=== PATIENT | male | born 1970 | race Caucasian/White ===

== ENCOUNTER 2016-11-29 21:02 | Emergency (ER) | payer MEDICAID ==
[2016-11-29 21:08] VITALS: TEMP 98.2
[2016-11-29] MEDS ORDERED: IPRATROPIUM/ALBUTEROL 3 ML DEYVIAL IH ONE (21:19)
--- NOTE | 2016-11-29 21:22 | EDPHY ---
H & P Stated Complaint: cough, "bone pain" in whole back, SOB x ~2mo HPI/ROS: HPI CHIEF COMPLAINT: Cough, congestion, muscle aches, joint pain HISTORY OF PRESENT ILLNESS: This patient very pleasant 46-year-old male no significant medical history does have a remote history of smoking, no underlying lung disease, presents emergency room with 1 month of worsening cough. States over the past week he has had progressively worsening cough with productive sputum initially clear but also times green, dark-colored, no blood. Also endorses chills at night, muscle aches, joint pain. Shortness of breath. No chest pain. Presents emergency room this evening for progressively worsening shortness of breath wheezing and pain when he breathes in. Denies fever at home but does have chills. Past Medical History: No medical history Past Surgical History: No surgical history Social History: Denies daily use of drugs alcohol tobacco products, lives locally in [place] denies being homeless Family History: Noncontributory ROS REVIEW OF SYSTEMS: A comprehensive 10 point review of systems is otherwise negative aside from elements mentioned in the history of present illness. Exam Constitutional appears well nontoxic, triage nursing summary reviewed, vital signs reviewed, awake/alert. Eyes normal conjunctivae and sclera, EOMI, PERRLA. HENT normal inspection, atraumatic, moist mucus membranes, no epistaxis, neck supple/ no meningismus, no raccoon eyes. Respiratory very faint wheezing bilaterally, otherwise good air movement Cardiovascular rate normal, regular rhythm, no murmur, no edema, distal pulses normal. Gastrointestinal soft, non-tender, no rebound, no guarding, normal bowel sounds, no distension, no pulsatile mass. Genitourinary no CVA tenderness. Musculoskeletal no midline vertebral tenderness, full range of motion, no calf swelling, no tenderness of extremities, no meningismus, good pulses, neurovascularly intact. Skin pink, warm, & dry, no rash, skin atraumatic. Neurologic awake, alert and oriented x 3, AAOx3, moves all 4 extremities equally, motor intact, sensory intact, CN II-XII intact, normal cerebellar, normal vision, normal speech. Psychiatric normal mood/affect. Heme/Lymph/Immune no lymphadenopathy. Differential Diagnosis: Includes but is not limited to in a particular order viral syndrome, bronchitis, bronchospasm, viral pneumonia, bacterial pneumonia, PE, dissection, pneumothorax CHF Medical Decision Making: Plan for this patient full psychiatry adult physician, IV establishment DuoNeb breathing treatment, EKG, troponin, D-dimer. Fluid bolus. 22 chest x-ray will re-evaluate. Re-evaluation: EKG interpretation by me on record in [facility] system. Impression time of EKG 2150 sinus rhythm rate of 86 no acute ischemic appreciated specifically no ST elevation, ST depression, T-wave abnormalities prolonged intervals. ED x-ray chest two view: Negative for acute cardiopulmonary disease. Image interpreted myself. 5: re-examination at this time this patient is resting comfortably feels much better. DuoNeb greatly improved his respiratory symptoms. No further wheezing. Pulse ox 94% on room air. Good air movement. No wheezing. Feels comfortable. Agrees for discharge planning. Prescription given for albuterol, guaifenesin for cough and congestion, azithromycin, and Percocet for pain control. Take-home pack of Percocet. 7: Time of discharge patient did 1 show me 1 more thing he tells me that he has cyst the dorsum of his penile shaft. It is mobile soft nontender, 3 cm x 3 cm. I will refer him to Urology for this. No testicular pain. No urinary symptoms. Source: Patient - Personal History Current Tetanus/Diphtheria Vaccine: Unsure Current Tetanus Diphtheria and Acellular Pertussis (TDAP): Unsure - Medical/Surgical History Hx Asthma: No Hx Chronic Respiratory Disease: No Hx Diabetes: No Hx Cardiac Disease: No Hx Renal Disease: No Hx Cirrhosis: No Hx Alcoholism: No Hx HIV/AIDS: No Hx Splenectomy or Spleen Trauma: No Other PMH: hx B knee sgy - Social History Smoking Status: Former smoker Constitutional: Initial Vital Signs Temperature (C) 36.8 C 11/29/16 21:04 Heart Rate 100 11/29/16 21:04 Respiratory Rate 16 11/29/16 21:04 Blood Pressure 116/71 11/29/16 21:04 O2 Sat (%) 97 11/29/16 21:04 O2 Delivery Mode Room Air Allergies/Adverse Reactions: Penicillins Allergy (Verified 11/29/16 21:08) Home Medications: Medication Instructions Recorded AZITHROMYCIN [Z-PACK] 250 mg PO DAILY #6 tab 11/29/16 Albuterol [Proventil Inhaler HFA 1 - 2 puffs IH Q4H #1 mdi 11/29/16 (*)] Guaifenesin [Guaifenesin ER] 600 mg PO BID #14 tab.er.12h 11/29/16 Ibuprofen [Motrin (*)] 800 mg PO Q6-8PRN #7 tab 11/29/16 oxyCODONE HCL/ACETAMINOPHEN 1 each PO BID #14 tablet 11/29/16 [Percocet 5-325 mg Tablet] predniSONE 60 mg PO DAILY #15 tab 11/29/16 Medical Decision Making - Diagnostics Imaging: Imaging Impressions Chest X-Ray 11/29/16 21:20 Impression: Clear lungs. No pneumonia. - Data Points Laboratory Results: Laboratory Results 11/29/16 21:41 11/29/16 21:41 11/29/16 11/29/16 11/29/16 21:41 21:41 21:41 WBC 7.60 10^3/uL 10^3/uL (3.80-9.50) RBC 5.57 10^6/uL 10^6/uL (4.40-6.38) Hgb 16.9 g/dL g/dL (13.7-17.5) Hct 47.6 % % (40.0-51.0) MCV 85.5 fL fL (81.5-99.8) MCH 30.3 pg pg (27.9-34.1) MCHC 35.5 g/dL g/dL (32.4-36.7) RDW 12.9 % % (11.5-15.2) Plt Count 349 10^3/uL 10^3/uL (150-400) MPV 9.7 fL fL (8.7-11.7) Neut % (Auto) 50.3 % % (39.3-74.2) Lymph % (Auto) 37.8 % % (15.0-45.0) [place] % (Auto) 9.6 % % (4.5-13.0) Eos % (Auto) 1.2 % % (0.6-7.6) Baso % (Auto) 0.8 % % (0.3-1.7) Nucleat RBC Rel Count 0.0 % % (0.0-0.2) Absolute Neuts (auto) 3.83 10^3/uL 10^3/uL (1.70-6.50) Absolute Lymphs (auto) 2.87 10^3/uL 10^3/uL (1.00-3.00) Absolute Monos (auto) 0.73 10^3/uL 10^3/uL (0.30-0.80) Absolute Eos (auto) 0.09 10^3/uL 10^3/uL (0.03-0.40) Absolute Basos (auto) 0.06 10^3/uL 10^3/uL (0.02-0.10) Absolute Nucleated RBC 0.00 10^3/uL 10^3/uL (0-0.01) Immature Gran % 0.3 % % (0.0-1.1) Immature Gran # 0.02 10^3/uL 10^3/uL (0.00-0.10) PT 13.2 SEC SEC (12.0-15.0) INR 1.01 (0.83-1.16) APTT 26.9 SEC SEC (23.0-38.0) D-Dimer < 0.27 ug/mLFEU ug/mLFEU (0.00-0.50) Sodium 138 mEq/L mEq/L (134-144) Potassium 3.4 mEq/L L mEq/L (3.5-5.2) Chloride 101 mEq/L mEq/L (97-110) Carbon Dioxide 19 mEq/l L mEq/l (22-31) Anion Gap 18 mEq/L H mEq/L (8-16) BUN 6 mg/dL L mg/dL (7-23) Creatinine 0.9 mg/dL mg/dL (0.7-1.3) Estimated GFR > 60 Glucose 102 mg/dL H mg/dL (70-100) Calcium 10.2 mg/dL mg/dL (8.5-10.4) Magnesium 1.8 mg/dL mg/dL (1.6-2.3) Total Bilirubin 1.3 mg/dL mg/dL (0.1-1.4) Conjugated Bilirubin 0.6 mg/dL H mg/dL (0.0-0.5) Unconjugated Bilirubin 0.7 mg/dL mg/dL (0.0-1.1) AST 37 IU/L IU/L (17-59) ALT 40 IU/L IU/L (21-72) Alkaline Phosphatase 78 IU/L IU/L (38-126) Creatine Kinase 319 IU/L H IU/L (0-224) CK-MB (CK-2) Fraction 2.69 ng/mL ng/mL (0-3.19) CK-MB (CK-2) % 0.8 % % (0.0-4.0) Creatine Kinase Interp NEGATIVE (NEGATIVE) Troponin I < 0.012 ng/mL ng/mL (0-0.034) NT-Pro-B Natriuret Pep 25 pg/mL pg/mL (0-125) Total Protein 8.1 g/dL g/dL (6.3-8.2) Albumin 5.1 g/dL H g/dL (3.5-5.0) Lipase 146.0 IU/L IU/L (23-300) Medications Given: Discontinued Medications Albuterol/Ipratropium (Duoneb) 3 ml IH EDNOW ONE Stop: 11/29/16 21:20 Last Admin: 11/29/16 21:27 Dose: 3 ml Sodium Chloride (Ns) 1,000 mls @ 0 mls/hr IV ONCE ONE PRN Reason: Wide Open Stop: 11/29/16 21:28 Last Admin: 11/29/16 21:45 Dose: 1,000 mls Departure - Departure Disposition: Home, Routine, Self-Care Clinical Impression: Bronchitis Condition: Good Instructions: Acute Bronchitis (ED) Additional Instructions: 1. Return emergency room if you have any worsening symptoms questions or concerns. Includes worsening shortness of breath, chest pain fever vomiting. 2. Follow-up with urology about the cyst on your penis. Referrals: NONE *PRIMARY CARE P,. [Primary Care Provider] - As per Instructions Eriberto Payan MD [Medical Doctor] - As per Instructions Prescriptions: Albuterol [Proventil Inhaler HFA (*)] 1 - 2 puffs IH Q4H #1 mdi AZITHROMYCIN [Z-PACK] 250 mg PO DAILY #6 tab Guaifenesin [Guaifenesin ER] 600 mg PO BID #14 tab.er.12h Ibuprofen [Motrin (*)] 800 mg PO Q6-8PRN #7 tab oxyCODONE HCL/ACETAMINOPHEN [Percocet 5-325 mg Tablet] 1 each PO BID #14 tablet predniSONE 60 mg PO DAILY #15 tab
[2016-11-29] MEDS ORDERED: NS 1,000 ML IV ONE (21:27)
--- NOTE | 2016-11-29 21:53 | CPEKG ---
Heart Rate: 86 RR Interval: 698 P-R Interval: 168 QRSD Interval: 90 QT Interval: 352 QTC Interval: 421 P [place]: 15 QRS [place]: 36 T Wave [place]: 14 EKG Severity - NORMAL ECG - EKG Impression: SINUS RHYTHM Electronically Signed By: Xochilt Walker 02-Dec-2016 22:04:02
[2016-11-29 22:03] LABS: ALANINE AMINOTRANSFERASE 40 IU/L (21-72); ALBUMIN 5.1 g/dL (3.5-5.0); ALKALINE PHOSPHATASE 78 IU/L (38-126); ANION GAP 18 mEq/L (8-16); ASPARTATE AMINOTRANSFERASE 37 IU/L (17-59); BILIRUBIN,TOTAL 1.3 mg/dL (0.1-1.4); CALCIUM 10.2 mg/dL (8.5-10.4); CARBON DIOXIDE 19 mEq/l (22-31); CHLORIDE 101 mEq/L (97-110); CREATININE 0.9 mg/dL (0.7-1.3); GLOMERULAR FILTRATION RATE > 60; GLUCOSE 102 mg/dL (70-100); MAGNESIUM 1.8 mg/dL (1.6-2.3); POTASSIUM 3.4 mEq/L (3.5-5.2); SODIUM 138 mEq/L (134-144); TOTAL PROTEIN 8.1 g/dL (6.3-8.2)
[2016-11-29 22:11] LABS: INR 1.01 (0.83-1.16); PROTIME(PATIENT) 13.2 SEC (12.0-15.0)
[2016-11-29 22:12] LABS: APTT 26.9 SEC (23.0-38.0)
[2016-11-29 22:14] LABS: TROPONIN I < 0.012 ng/mL (0-0.034)
[2016-11-29 22:16] LABS: % IMMATURE GRANULYOCYTES 0.3 % (0.0-1.1); ABSOLUTE IMMATURE GRANULOCYTES 0.02 10^3/uL (0.00-0.10); ADD DIFF? NO; ADD MORPH? NO; ADD SCAN? NO; ATYPICAL LYMPHOCYTE FLAG 0 (0-99); FRAGMENT RBC FLAG 0 (0-99); HEMATOCRIT 47.6 % (40.0-51.0); HEMOGLOBIN 16.9 g/dL (13.7-17.5); LEFT SHIFT FLG 0 (0-99); LIPEMIA HEMOLYSIS FLAG 90 (0-99); MEAN CELL HEMOGLOBIN 30.3 pg (27.9-34.1); MEAN CELL HEMOGLOBIN CONCENTR. 35.5 g/dL (32.4-36.7); MEAN CELL VOLUME 85.5 fL (81.5-99.8); MEAN PLATELET VOLUME 9.7 fL (8.7-11.7); PLATELET CLUMPS FLAG 10 (0-99); PLATELET COUNT 349 10^3/uL (150-400); RED BLOOD CELL COUNT 5.57 10^6/uL (4.40-6.38); RED CELL DISTRIBUTION WIDTH 12.9 % (11.5-15.2)
[2016-11-29 22:24] LABS: CK-MB INTERPRETATION NEGATIVE (NEGATIVE)
[2016-11-29 22:25] LABS: CREATINE KINASE-MB FRACTION 2.69 ng/mL (0-3.19)
[2016-11-29 22:28] LABS: BILIRUBIN-CONJUGATED 0.6 mg/dL (0.0-0.5); BILIRUBIN-UNCONJUGATED 0.7 mg/dL (0.0-1.1)
[2016-11-29] MEDS ORDERED: predniSONE 20 MG TAB PO ONE (22:48)
[2016-11-29] MEDS ORDERED: AZITHROMYCIN 250 MG TAB PO ONE (22:48)
[2016-11-29] MEDS ORDERED: OXYCODONE/APAP 5/325MG PREPACK#4 BTL TAKEHOME ONE (22:48)
[2016-11-29 23:06] VITALS: BP 117/57; PULSE 87; RESP 17; O2SAT 94
== END 2016-11-29 23:07 | disposition home or self-care (01) ==
DX: J20.9 Acute bronchitis, unspecified (principal); Z87.891 Personal history of nicotine dependence

== ENCOUNTER 2017-03-24 18:46 | Observation (INO) | payer MEDICAID ==
--- NOTE | 2017-03-24 18:59 | EDPHY ---
H & P Time Seen by Provider: 03/24/17 18:56 HPI/ROS: Chief complaint. Slurred speech HPI. 46-year-old male who is a resident of [facility] presents with 4 day history of complaints of general fatigue, feel like he will pass out when he is eating, decreased sleeping, aching to arms and legs, slurred speech. He also has upper abdominal pain and nausea. He is not sick however. No focal weakness or paresthesias to arms and legs. Denies fever or illness. Denies chest pain, shortness of breath. No recent head injury. Apparently in some recent change in his psychiatric medication. ROS Constitutional. no fever/chills, no weakness Eyes. no problems with vision ENT. no sore throat, no nasal drainage Cardiovascular. no chest pain Respiratory. no shortness of breath, no cough Abdominal. abdominal pain, nausea/vomiting, no diarrhea . no problems urinating MS. Aching to arms and legs Skin. no rash Lymph. no swollen glands Neuro. Slurred speech, decreased sleeping Past Medical/Surgical History: Past medical history significant for bipolar illness Social History: Single, daily smoker, no alcohol. Resident of [facility] Smoking Status: Current every day smoker Physical Exam: General Appearance: Alert well-developed male mild distress vital signs significant for heart rate 101 Eyes: Pupils equal and round no pallor or injection. ENT, Mouth: Mucous membranes are moist. Respiratory: There are no retractions, lungs are clear to auscultation. Cardiovascular: Regular rate and rhythm. Gastrointestinal: Abdomen is soft and nontender, no masses, bowel sounds normal. Neurological: Awake and alert, sensory and motor exams grossly normal. Speech is normal and not slurred by my exam. Cranial nerves are intact. There is no pronator drift. [id number] and umqr-bn-udle are intact bilaterally Skin: Warm and dry, no rashes. Musculoskeletal: Neck is supple nontender. Extremities symmetrical, full range of motion. Psychiatric: Patient is oriented X 3, there is no agitation. Constitutional: Initial Vital Signs Temperature (C) 36.9 C 03/24/17 18:49 Heart Rate 101 H 03/24/17 18:49 Respiratory Rate 16 03/24/17 18:49 Blood Pressure 134/82 H 03/24/17 18:49 O2 Sat (%) 97 03/24/17 18:49 O2 Delivery Mode Room Air Allergies/Adverse Reactions: Penicillins Allergy (Verified 11/29/16 21:08) Home Medications: Medication Instructions Recorded AZITHROMYCIN [Z-PACK] 250 mg PO DAILY #6 tab 11/29/16 Albuterol [Proventil Inhaler HFA 1 - 2 puffs IH Q4H #1 mdi 11/29/16 (*)] Guaifenesin [Guaifenesin ER] 600 mg PO BID #14 tab.er.12h 11/29/16 Ibuprofen [Motrin (*)] 800 mg PO Q6-8PRN #7 tab 11/29/16 oxyCODONE HCL/ACETAMINOPHEN 1 each PO BID #14 tablet 11/29/16 [Percocet 5-325 mg Tablet] predniSONE 60 mg PO DAILY #15 tab 11/29/16 Medical Decision Making - Diagnostics EKG Interpretation: EKG interpreted by me shows normal sinus rhythm with normal interval and axis. QRS is normal there is no significant ST elevation or depression. No arrhythmia. Rate is 97 Procedures: IV normal saline, monitor Morphine for pain, Zofran for nausea ED Course/Re-evaluation: Re-evaluation at 8:40 p.m.. Patient is stable. Still complains of some nausea and upper abdominal pain. Patient and I discussed laboratory evaluation, treatment plan including recommendation for Admission. He expresses understanding and agreement I consulted and discussed the case with Dr. Pozo, hospitalist, who agrees to the admission Differential Diagnosis: Certainly I considered CVA however the patient has no evidence of slurred speech or neurologic findings. His lithium level is slightly elevated which possibly could cause some slurred speech. He also has an elevated lipase indicating pancreatitis - Data Points Laboratory Results: Laboratory Results 03/24/17 19:32 03/24/17 19:32 03/24/17 03/24/17 19:32 19:32 WBC 11.60 10^3/uL H 10^3/uL (3.80-9.50) RBC 4.76 10^6/uL 10^6/uL (4.40-6.38) Hgb 14.9 g/dL g/dL (13.7-17.5) Hct 43.8 % % (40.0-51.0) MCV 92.0 fL fL (81.5-99.8) MCH 31.3 pg pg (27.9-34.1) MCHC 34.0 g/dL g/dL (32.4-36.7) RDW 13.0 % % (11.5-15.2) Plt Count 338 10^3/uL 10^3/uL (150-400) MPV 9.1 fL fL (8.7-11.7) Neut % (Auto) 66.4 % % (39.3-74.2) Lymph % (Auto) 20.9 % % (15.0-45.0) [place] % (Auto) 8.0 % % (4.5-13.0) Eos % (Auto) 2.9 % % (0.6-7.6) Baso % (Auto) 1.3 % % (0.3-1.7) Nucleat RBC Rel Count 0.0 % % (0.0-0.2) Absolute Neuts (auto) 7.69 10^3/uL H 10^3/uL (1.70-6.50) Absolute Lymphs (auto) 2.43 10^3/uL 10^3/uL (1.00-3.00) Absolute Monos (auto) 0.93 10^3/uL H 10^3/uL (0.30-0.80) Absolute Eos (auto) 0.34 10^3/uL 10^3/uL (0.03-0.40) Absolute Basos (auto) 0.15 10^3/uL H 10^3/uL (0.02-0.10) Absolute Nucleated RBC 0.00 10^3/uL 10^3/uL (0-0.01) Immature Gran % 0.5 % % (0.0-1.1) Immature Gran # 0.06 10^3/uL 10^3/uL (0.00-0.10) Sodium 133 mEq/L L mEq/L (134-144) Potassium 4.4 mEq/L mEq/L (3.5-5.2) Chloride 102 mEq/L mEq/L (97-110) Carbon Dioxide 24 mEq/l mEq/l (22-31) Anion Gap 7 mEq/L L mEq/L (8-16) BUN 9 mg/dL mg/dL (7-23) Creatinine 1.0 mg/dL mg/dL (0.7-1.3) Estimated GFR > 60 Glucose 81 mg/dL mg/dL (70-100) Calcium 9.6 mg/dL mg/dL (8.5-10.4) Total Bilirubin 0.4 mg/dL mg/dL (0.1-1.4) Conjugated Bilirubin 0.2 mg/dL mg/dL (0.0-0.5) Unconjugated Bilirubin 0.2 mg/dL mg/dL (0.0-1.1) AST 42 IU/L IU/L (17-59) ALT 42 IU/L IU/L (21-72) Alkaline Phosphatase 75 IU/L IU/L (38-126) Troponin I < 0.012 ng/mL ng/mL (0-0.034) Total Protein 6.9 g/dL g/dL (6.3-8.2) Albumin 4.1 g/dL g/dL (3.5-5.0) Lipase 502.0 IU/L H IU/L (23-300) [place] 1.3 mEq/L H mEq/L (0.6-1.2) Medications Given: Discontinued Medications Sodium Chloride (Ns) 1,000 mls @ 0 mls/hr IV ONCE ONE; Wide Open PRN Reason: Protocol Stop: 03/24/17 19:19 Last Admin: 03/24/17 19:36 Dose: 1,000 mls Departure - Departure Disposition: [facility] In[facility] Acute Clinical Impression: Acute pancreatitis Qualifiers: Pancreatitis type: unspecified pancreatitis type Acute pancreatitis complication: unspecified Qualified Code(s): K85.90 - Acute pancreatitis without necrosis or infection, unspecified Condition: Good Referrals: NOT,SURE [Other] - As per Instructions
[2017-03-24] MEDS ORDERED: NS 1,000 ML IV ONE ×2 (19:18→20:46)
--- NOTE | 2017-03-24 19:38 | CPEKG ---
Heart Rate: 97 RR Interval: 619 P-R Interval: 192 QRSD Interval: 88 QT Interval: 348 QTC Interval: 442 P [place]: 55 QRS [place]: 73 T Wave [place]: 31 EKG Severity - NORMAL ECG - EKG Impression: SINUS RHYTHM Electronically Signed By: Dino Landaverde 24-Mar-2017 20:48:36
[2017-03-24 19:44] LABS: % IMMATURE GRANULYOCYTES 0.5 % (0.0-1.1); ABSOLUTE IMMATURE GRANULOCYTES 0.06 10^3/uL (0.00-0.10); ADD DIFF? NO; ADD MORPH? NO; ADD SCAN? NO; ATYPICAL LYMPHOCYTE FLAG 10 (0-99); FRAGMENT RBC FLAG 0 (0-99); HEMATOCRIT 43.8 % (40.0-51.0); HEMOGLOBIN 14.9 g/dL (13.7-17.5); LEFT SHIFT FLG 0 (0-99); LIPEMIA HEMOLYSIS FLAG 90 (0-99); MEAN CELL HEMOGLOBIN 31.3 pg (27.9-34.1); MEAN PLATELET VOLUME 9.1 fL (8.7-11.7); PLATELET CLUMPS FLAG 10 (0-99); PLATELET COUNT 338 10^3/uL (150-400); RED BLOOD CELL COUNT 4.76 10^6/uL (4.40-6.38)
[2017-03-24 20:07] LABS: ALANINE AMINOTRANSFERASE 42 IU/L (21-72); ALBUMIN 4.1 g/dL (3.5-5.0); ALKALINE PHOSPHATASE 75 IU/L (38-126); ANION GAP 7 mEq/L (8-16); ASPARTATE AMINOTRANSFERASE 42 IU/L (17-59); BILIRUBIN,TOTAL 0.4 mg/dL (0.1-1.4); BILIRUBIN-CONJUGATED 0.2 mg/dL (0.0-0.5); BILIRUBIN-UNCONJUGATED 0.2 mg/dL (0.0-1.1); CALCIUM 9.6 mg/dL (8.5-10.4); CARBON DIOXIDE 24 mEq/l (22-31); CHLORIDE 102 mEq/L (97-110); GLOMERULAR FILTRATION RATE > 60; GLUCOSE 81 mg/dL (70-100); LITHIUM 1.3 mEq/L (0.6-1.2); POTASSIUM 4.4 mEq/L (3.5-5.2); SODIUM 133 mEq/L (134-144); TOTAL PROTEIN 6.9 g/dL (6.3-8.2)
[2017-03-24 20:18] LABS: TROPONIN I < 0.012 ng/mL (0-0.034)
[2017-03-24] MEDS ORDERED: ONDANSETRON 4 MG/2 ML VIAL IVP ONE (20:46)
[2017-03-24] MEDS ORDERED: ONDANSETRON 4 MG/2 ML VIAL IVP PRN (21:15)
[2017-03-24] MEDS ORDERED: NS 1,000 ML IV SCH (21:15)
[2017-03-24] MEDS ORDERED: ACETAMINOPHEN 325 MG TAB PO PRN (21:15)
[2017-03-24] MEDS ORDERED: ZOLPIDEM TARTRATE 5 MG TAB PO PRN (21:15)
--- NOTE | 2017-03-24 21:23 | HOSPPROG ---
Hospitalist Progress Note Assessment/Plan: HISTORY: This patient comes into the ER from [facility] with a list of several different complaints. The most prominent symptom is that he says he feels like he is going to pass out whenever he eats and he has nausea and some vague abdominal discomfort that is not a severe pain. He is not vomiting he is having normal bowel function. There is no bleeding no fever. He says he has had some irritable bowel syndrome symptoms in the past which have resolved and were different than what he is experiencing now. He does not have any of the symptoms when he is not eating. He thinks he is keeping himself hydrated. In addition to the above he mentions feeling some diffuse muscle aches any feels at times like his speech is slurred. He does not have any other neurologic or visual symptoms. There are no cardiac or respiratory symptoms no rashes no joint symptoms and no mucosal symptoms. He does mention that his psychiatrist has recently changed his dose of lithium there was hard for me to tell what direction at changed. ROS: A comprehensive 10 system review revealed no other significant findings PAST MEDICAL HISTORY: Bipolar disorder Irritable bowel syndrome FAMILY MEDICAL HISTORY: Father of pancreatic cancer Mother was an alcoholic and had pancreatitis, of COPD exacerbations Sister with obesity SOCIAL HISTORY: Currently lives at [facility] No tobacco or alcohol or street drugs, history of use of marijuana MEDICATIONS: The patients list has been reconciled by our clinical pharmacist in the EMR. I have reviewed the list and ordered appropriate medicines. not listed on his medicine reconciliation list by the pharmacist is that he uses a moderate amount of ibuprofen for back pain as much as 4-600mg 3 times daily though none in the last several days or so PHYSICAL EXAMINATION: Vital Signs: Stable without fever Quality Assurance Technician: Sinus rhythm Examination: General: alert, oriented, good mentation, relaxed Skin: warm, dry, good color, no rash HEENT: normal Neck: no mass or jvd Resps: relaxed Lungs: clear breath sounds Heart: regular, no murmur Abdomen: soft, nondistended, very mildly tender across the upper abdomen with no guarding rebound or palpable abnormality, +BS, no mass or hernia Upper Extremities: normal Lower Extremities: no edema, warm No Bleeding or bruising Neurologic: normal speech/language, normal sap basis, no focal weakness; notably I do not find his speech to be slurred at all at this time IV site: looks normal LABORATORY DATA: [place] [address] with predominance of neutrophils Unremarkable basic met panel and liver panel Lipase 500 [place] 1.3 RADIOLOGY STUDIES: None done so far ASSESSMENT: # nausea and lightheadedness with the eating of uncertain etiology -with his use of ibuprofen this could be nonsteroidal induced gastropathy -one could also consider a viral type illness particularly with his myalgias -another possibility is lithium related side effects and in fact his lithium level is up to twice what it was a week ago after recent dose increase; while not tremendously high this level of lithium can produce significant side effects in some people -the lipase is minimally elevated, my suspicion for pancreatitis is low both would wonder if he might have gallstones or other biliary disease # myalgias with unremarkable examination end of uncertain etiology or significance # bipolar disorder seeming currently reasonably controlled on examination tonight PLANS: -hydration overnight -abdominal ultrasound to rule out gallstones -stop nonsteroidal anti-inflammatory medicine -proton pump inhibitor -hold lithium and recheck level, may need to contact his prescribing physician during office hours to review his dosing and level target -recheck lipase in the morning; if it were rising remarkably might reconsider the possibility of pancreatitis -check CPK to be sure the myalgias are not associated with any injury I have reviewed the patient's case in detail with Dr. Dino Landaverde I have reviewed the patient's past medical records as part of this assessment, including previous laboratory data and ER visit Objective: Vital Signs Temp Pulse Resp BP Pulse Ox 36.9 C 96 16 122/77 H 98 03/24/17 18:49 03/24/17 20:55 03/24/17 20:55 03/24/17 20:55 03/24/17 20:55 ICD10 Worksheet Patient Problems: Problems Problem Status Onset Acute pancreatitis Acute
--- NOTE | 2017-03-24 21:31 | HOSPPROG ---
Hospitalist Progress Note Assessment/Plan: HISTORY: This patient comes into the ER from [facility] with a list of several different complaints. The most prominent symptom is that he says he feels like he is going to pass out whenever he eats and he has nausea and some vague abdominal discomfort that is not a severe pain. He is not vomiting he is having normal bowel function. There is no bleeding no fever. He says he has had some irritable bowel syndrome symptoms in the past which have resolved and were different than what he is experiencing now. He does not have any of the symptoms when he is not eating. He thinks he is keeping himself hydrated. In addition to the above he mentions feeling some diffuse muscle aches any feels at times like his speech is slurred. He does not have any other neurologic or visual symptoms. There are no cardiac or respiratory symptoms no rashes no joint symptoms and no mucosal symptoms. He does mention that his psychiatrist has recently changed his dose of lithium there was hard for me to tell what direction at changed. ROS: A comprehensive 10 system review revealed no other significant findings PAST MEDICAL HISTORY: Bipolar disorder Irritable bowel syndrome FAMILY MEDICAL HISTORY: Father of pancreatic cancer Mother was an alcoholic and had pancreatitis, of COPD exacerbations Sister with obesity SOCIAL HISTORY: Currently lives at [facility] No tobacco or alcohol or street drugs, history of use of marijuana MEDICATIONS: The patients list has been reconciled by our clinical pharmacist in the EMR. I have reviewed the list and ordered appropriate medicines. not listed on his medicine reconciliation list by the pharmacist is that he uses a moderate amount of ibuprofen for back pain as much as 4-600mg 3 times daily though none in the last several days or so PHYSICAL EXAMINATION: Vital Signs: Stable without fever Tugboat Pilot: Sinus rhythm Examination: General: alert, oriented, good mentation, relaxed Skin: warm, dry, good color, no rash HEENT: normal Neck: no mass or jvd Resps: relaxed Lungs: clear breath sounds Heart: regular, no murmur Abdomen: soft, nondistended, very mildly tender across the upper abdomen with no guarding rebound or palpable abnormality, +BS, no mass or hernia Upper Extremities: normal Lower Extremities: no edema, warm No Bleeding or bruising Neurologic: normal speech/language, normal director college, no focal weakness; notably I do not find his speech to be slurred at all at this time IV site: looks normal LABORATORY DATA: [place] [address] with predominance of neutrophils Unremarkable basic met panel and liver panel Lipase 500 [place] 1.3 RADIOLOGY STUDIES: None done so far ASSESSMENT: # nausea and lightheadedness with the eating of uncertain etiology -with his use of ibuprofen this could be nonsteroidal induced gastropathy -one could also consider a viral type illness particularly with his myalgias -another possibility is lithium related side effects and in fact his lithium level is up to twice what it was a week ago after recent dose increase; while not tremendously high this level of lithium can produce significant side effects in some people -the lipase is minimally elevated, my suspicion for pancreatitis is low both would wonder if he might have gallstones or other biliary disease # myalgias with unremarkable examination end of uncertain etiology or significance # bipolar disorder seeming currently reasonably controlled on examination tonight PLANS: -hydration overnight -abdominal ultrasound to rule out gallstones -stop nonsteroidal anti-inflammatory medicine -proton pump inhibitor -hold lithium and recheck level, may need to contact his prescribing physician during office hours to review his dosing and level target -recheck lipase in the morning; if it were rising remarkably might reconsider the possibility of pancreatitis -check CPK to be sure the myalgias are not associated with any injury I have reviewed the patient's case in detail with Dr. Dino Landaverde I have reviewed the patient's past medical records as part of this assessment, including previous laboratory data and ER visit Objective: Vital Signs Temp Pulse Resp BP Pulse Ox 36.9 C 96 16 122/77 H 98 03/24/17 18:49 03/24/17 20:55 03/24/17 20:55 03/24/17 20:55 03/24/17 20:55 ICD10 Worksheet Patient Problems: Problems Problem Status Onset Acute pancreatitis Acute
[2017-03-24] MEDS: PANTOPRAZOLE SODIUM 40 MG TAB PO SCH (23:46)
[2017-03-24] MEDS: oxyCODONE IR 5 MG TAB PO PRN (23:46)
[2017-03-25] MEDS: oxyCODONE IR 5 MG TAB PO PRN ×2 (05:13→13:18)
[2017-03-25 06:02] LABS: ALANINE AMINOTRANSFERASE 38 IU/L (21-72); ALBUMIN 3.1 g/dL (3.5-5.0); ALKALINE PHOSPHATASE 48 IU/L (38-126); ASPARTATE AMINOTRANSFERASE 35 IU/L (17-59); BILIRUBIN,TOTAL 0.4 mg/dL (0.1-1.4); BILIRUBIN-CONJUGATED 0.3 mg/dL (0.0-0.5); BILIRUBIN-UNCONJUGATED 0.1 mg/dL (0.0-1.1); TOTAL PROTEIN 5.3 g/dL (6.3-8.2)
[2017-03-25 06:58] LABS: CK-MB INTERPRETATION NEGATIVE (NEGATIVE); CREATINE KINASE-MB FRACTION 3.15 ng/mL (0-3.19)
[2017-03-25] MEDS ORDERED: ENOXAPARIN 40 MG/0.4 ML SYR SC SCH (09:00)
[2017-03-25] MEDS: PANTOPRAZOLE SODIUM 40 MG TAB PO SCH (10:12)
[2017-03-25] MEDS ORDERED: BENZTROPINE MESYLATE 2 MG TAB PO PRN (12:17)
[2017-03-25] MEDS ORDERED: ARIPiprazole 10 MG TAB PO SCH (12:30)
[2017-03-25] MEDS ORDERED: PROPRANOLOL HCL 10 MG TAB PO SCH (12:30)
[2017-03-25] MEDS ORDERED: DIAZEPAM 5 MG TAB PO SCH (12:30)
[2017-03-25] MEDS ORDERED: hydrOXYzine HCL 25 MG TAB PO PRN (12:30)
[2017-03-25 14:50] LABS: HEMATOCRIT 41.7 % (40.0-51.0); HEMOGLOBIN 13.9 g/dL (13.7-17.5); MEAN CELL HEMOGLOBIN 31.4 pg (27.9-34.1); MEAN CELL HEMOGLOBIN CONCENTR. 33.3 g/dL (32.4-36.7); MEAN CELL VOLUME 94.3 fL (81.5-99.8); RED BLOOD CELL COUNT 4.42 10^6/uL (4.40-6.38); RED CELL DISTRIBUTION WIDTH 13.1 % (11.5-15.2)
[2017-03-25 15:09] LABS: ANION GAP 8 mEq/L (8-16); CALCIUM 8.8 mg/dL (8.5-10.4); CARBON DIOXIDE 25 mEq/l (22-31); CHLORIDE 104 mEq/L (97-110); CREATININE 0.9 mg/dL (0.7-1.3); GLOMERULAR FILTRATION RATE > 60; GLUCOSE 84 mg/dL (70-100); LITHIUM 0.9 mEq/L (0.6-1.2); POTASSIUM 4.5 mEq/L (3.5-5.2); SODIUM 137 mEq/L (134-144)
[2017-03-25 15:34] VITALS: BP 104/55; PULSE 68; RESP 18; TEMP 98.8; O2SAT 93
[2017-03-25] MEDS ORDERED: CYCLOBENZAPRINE 10 MG TAB PO SCH (16:00)
--- NOTE | 2017-03-25 18:21 | PDIAF ---
- Diagnosis Code Status: Full Code - Medication Management Discharge Medications: Medications to Continue on Transfer ARIPiprazole [Abilify 10 mg (*)] 20 mg PO DAILY 03/24/17 [Last Taken 03/24/17] Benztropine Mesylate [Cogentin (*)] 1 mg PO BID PRN 03/24/17 [Last Taken ] Diazepam [Valium 10 MG (*)] 10 mg PO HS 03/24/17 [Last Taken 03/20/17] Propranolol HCl [Inderal 10mg (*)] 10 mg PO BID 03/24/17 [Last Taken 03/24/17] hydrOXYzine HCL [Vistaril 50MG (RX)] 50 mg PO TID PRN 03/24/17 [Last Taken 03/23] Acetaminophen [Tylenol 325mg (*)] 650 mg PO Q4HRS PRN #0 tab 03/25/17 [Last Taken Unknown] Cyclobenzaprine [Flexeril 10 MG (*)] 10 mg PO TID PRN #12 tab 03/25/17 [Last Taken Unknown] Chaplain Antibiotics: n/a Discharge Medications: Refer to the Discharge Home Medication list for PRN reason. PICC Care - Routine: N/A - Orders Diet Recommendation: other (clear/bland diet, advance as able) Diet Texture: Regular Texture Diet Additional: HOLD LITHIUM tonight- need to contact psychiatry re when/how to restart. NOTE elevated TSH- copies of labs printed - Follow Up Care Current Providers and Referrals: NOT,SURE [Other] - 1-2 days
[2017-03-25] MEDS ORDERED: CYCLOBENZAPRINE 10 MG TAB PO ONE (18:45)
--- NOTE | 2017-03-25 20:28 | GDS ---
[f rep st] DISCHARGE SUMMARY CONSULTS: None. PROCEDURES: Abdominal ultrasound. HISTORY AND PHYSICAL: Please see the previously dictated note by Dr. Pozo. ADMISSION DIAGNOSES: 1. Nausea, lightheadedness, myalgias. 2. Bipolar disorder. DISCHARGE DIAGNOSES: 1. Nausea, lightheadedness, myalgias, suspect viral illness. 2. Bipolar disorder. HOSPITAL COURSE BY PROBLEM LIST: 1. Nausea, lightheadedness myalgias, suspect viral illness. The patient was admitted to the floor and given IV hydration, nausea medication, pain medication. Laboratory studies were repeated in the morning due to a slightly elevated white blood cell count from 11 to 12, with a slight increase of neutrophils. Symptoms improved with medications, and at the time of discharge he was tolerating mitesh ar liquids well, ambulating, and said his symptoms had improved. Suspect a viral illness, and we wi ll discharge him back to [facility] to follow up with his primary care provider. I have asked him to do only a bland diet with mainly liquids until he is feeling better. Should avoid nonsteroidal anti-inflammatories, but okay to take Tylenol as needed. Cannot discharge him with pain medications , as he is returning to [facility]. I have given him some doses of Flexeril, which did improve hi s symptoms. So, a discharge order was given for this. 2. Bipolar disorder. He recently had a dose change of lithium, and it was noted to be elevated, al though I am unsure of the timing with the dosing and the level. [place] was held last night, and wi ll be held again tonight. Repeat level was done today, and is 0.9, which is a normal level. I have written on his instructions that Kyree Gassaway should contact his psychiatrist to discuss dosing and do appropriate followup. DISCHARGE MEDICATIONS: He should continue with all of his routine home medications with the excepti on of holding lithium, to be restarted by his psychiatrist. I have also given him a new prescriptio n for Flexeril 10 mg, to take 3 times a day as needed for aches, muscle spasm, or pain. DISCHARGE INSTRUCTIONS: He has been asked to take a bland diet until he is feeling better. RN to R N notification was done with Kyree Lopez. [facility] was contacted by myself and are aware of his dischar ge. There was no indication for an emergency psychiatric evaluation, as he was alert, oriented, and without suicidal or homicidal ideations. He is going to be discharged back to [facility] to follow up with his primary care team and psychiatrist as needed. Of note, he did have a slightly elevated TSH level, and copies of all his labs were highlighted and given to him to share with his providers. /[id number]/MODL
== END 2017-03-25 18:40 ==
LOC: INTOOBSV 20:46 → F1N 22:43
PROVIDERS: ADMIT Internal Medicine; ATTEND Family Medicine
DX: R11.0 Nausea (principal); R42 Dizziness and giddiness; M79.1 Myalgia; R78.89 Finding of other specified substances, not normally found in blood; F31.9 Bipolar disorder, unspecified; F17.210 Nicotine dependence, cigarettes, uncomplicated; Z88.0 Allergy status to penicillin; Z80.0 Family history of malignant neoplasm of digestive organs
CPT/HCPCS: 76700; 93005; G0378; 96374; J2405